=== PATIENT | male | born 1955 | race Caucasian/White ===

== ENCOUNTER 2022-10-27 11:15 | Day surgery (SDC) | payer MEDICARE, OTHER, SELFPAY ==
[2022-10-27] VITALS (8 sets, daily range): BP systolic 96–132; BP diastolic 54–78; PULSE 58–65; RESP 14–23; TEMP 35.7–36.2; O2SAT 95–97; BMI 25.0
--- NOTE | 2022-10-27 | PATH_ITS ---
[facility] [place] Accession Number: [id number] No. of containers..01 Tissue . 01 Material submitted: . splenic flexure - SPLENIC FLEXURE COLON POLYPS . 01 Diagnosis: Splenic Flexure Polyps: Tubular adenoma x1. Colonic mucosa with focal mucosal hyperplasia x1. [place] 11/01/2022 1147 Local . 01 Electronically signed: . Carmine John MD, PhD, Pathologist NPI- [id number] . 01 Gross description: . SPLENIC FLEXURE COLON POLYPS: Received in formalin are 2 fragment(s) of tapia, soft tissue measuring 0.3 x 0.3 x 0.2 cm to 0.3 x 0.2 x 0.2 cm submitted entirely in 1 cassette(s) /CPE 10/28/2022 0721 Local . 01 Pathologist provided ICD-10: D12.3 . 01 CPT . 311687 Specimen Comment: A courtesy copy of this report has been sent to [phone] Performed at: 01 [facility] [address] [place] [address], [place], [place] [id number] MD Jose Covarrubias MD Phone: [phone]
[2022-10-27] MEDS: LACTATED RINGERS 1,000 ML 42 ML IV (12:13)
--- NOTE | 2022-10-27 12:47 | P.HP_ITS ---
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 Social History household members: family Smoking Status: Current every day smoker alcohol intake: never Meds Home Medications and Allergies Home Medications Medication Instructions Recorded Confirmed Type Alcometasone Diproriate Ointment 10/27/22 History Pulmicort Flexhaler 180 mcg 10/27/22 History albuterol sulfate 90 mcg/actuation 90 mcg inhalation PRN asthma 10/27/22 History aerosol inhaler betamethasone dipropionate 0.05 % applic topical 10/27/22 History topical cream lorazepam 1 mg tablet 1 mg PO BID 10/27/22 10/27/22 History mometasone 0.1 % topical ointment 1 applic topical DAILY 10/27/22 10/27/22 History oxcarbazepine 600 mg tablet 600 - 900 mg PO BID 10/27/22 10/27/22 History (Trileptal) perampanel 12 mg tablet (Fycompa) 12 mg PO BEDTIME 10/27/22 10/27/22 History pravastatin 40 mg tablet 40 mg PO BEDTIME 10/27/22 10/27/22 History umeclidinium 62.5 mcg/actuation 1 inh inhalation BEDTIME 10/27/22 10/27/22 History blister powder for inhalation (Incruse Ellipta) zonisamide 100 mg capsule 100 - 200 mg PO 3XD 10/27/22 10/27/22 History Allergies Allergy/AdvReac Type Severity Reaction Status Date / Time iodine AdvReac Intermediate Rash Verified 10/27/22 11:35 Exam Vital Signs (past 8 hours): - 10/27/22 11:37 Temperature 96.3 F L Pulse Rate 63 Respiratory Rate 20 Blood Pressure 132/65 Pulse Oximetry 97 Oxygen Delivery Method Room Air Oxygen Delivery Method Room Air Narrative Exam Narrative: Oropharynx free of lesions Chest clear to auscultation percussion Cardiac exam reveals no S3 or murmur Assessment & Plan Assessment & Plan narrative: History of colon polyps with need for follow-up colonoscopy. Risks, benefits, alternatives have been explained.
--- NOTE | 2022-10-27 12:48 | PM.OP.COLON ---
Operative Date/Time/Diagnoses Date of procedure: 10/27/22 Pre-op diagnosis: See indication and findings Procedure & Clinicians Study performed: Colonoscopy Indications: History of polyps Surgeon: Lobo Perez Procedure Notes Procedure in detail: After informed consent was obtained the patient was placed in left lateral decubitus position. The video colonoscope was introduced in the rectum slowly advanced cecum fired preparation was good. On slow withdrawal mucosa was carefully examined. The scope was removed. The patient tolerated procedure well. Blood loss none Complications none Sedation mac Findings 1. Two polyps at the splenic flexure measuring 4-5 mm each. Both were removed completely with Jumbo biopsy forceps 2. Quite tortuous colon 3. Otherwise negative colonoscopy to cecum Will await biopsy results here to determine surveillance interval. We may have to go back and find the path records from previous colonoscopies to help in this decision making.
[2022-10-27] MEDS: LORazepam 2 MG/ML INJ 0.5 MG IV (13:17)
--- NOTE | 2022-10-27 13:22 | SUR.PHASEI ---
Patient appeared to have a seizure soon after arriving in PACU, anesthesia provider present. Patient's right arm was pulsing rhythmically and his eyelids fluttered for approximately 10 seconds. Patient started speaking and continued to awake from sedation without incident. Ativan was given.
--- NOTE | 2022-10-27 13:29 | SUR.PHASEI ---
Patient reported another small seizure. His right arm jerked a few times and his eyes were unfocused. Seemed approximately 3 seconds.
== END 2022-10-27 14:21 | disposition home or self-care (01) ==
PROVIDERS: PCP Internal Medicine; Referring Provider Internal Medicine; Visit Provider Internal Medicine Gastroenterology
PROC: 0DJD8ZZ Inspection of Lower Intestinal Tract, Via Natural or Artificial Opening Endoscopic (ICD-10-PCS; CPT 45378; principal; 2022-10-27 12:30)
DX: Z12.11 Encounter for screening for malignant neoplasm of colon (principal); Z86.010 Personal history of colon polyps; D12.3 Benign neoplasm of transverse colon
CPT/HCPCS: 45380; J2060; J2250; J2704